=== PATIENT | male | born 1960 | race Caucasian/White ===

== ENCOUNTER 2016-09-11 05:33 | Emergency (ER) | payer OTHER ==
[~2016-09-11] VITALS: Ht 170.2 cm; Wt 127.0 kg
[~2016-09-11 05:33] MED LIST: ENDOCET 325 MG-1 TA1 PO; GLIPIZIDE XL5 MG PO; JANUVIA 100MG100 MG PO; LISINOPRIL20 MG PO; METFORMIN HCL1000 MG PO
[2016-09-11] MEDS ORDERED: TRICOR145 M1 PO (05:56)
[2016-09-11] MEDS ORDERED: IRBESARTAN75 M1 PO (05:56)
--- NOTE | 2016-09-11 06:14 | ED GI/GU/ABDOMINAL COMPLAINT ---
History of Present Illness General Chief Complaint: Abdominal Pain/Flank Pain Stated Complaint: ABD PAIN X A FEW HOURS Source: patient, family, old records Exam Limitations: no limitations Vital Signs & Intake/Output Vital Signs & Intake/Output Vital Signs Date Time Temp Pulse Resp B/P B/P Pulse O2 O2 Flow FiO2 Mean Ox Delivery Rate 09/11 0801 97.0 70 18 132/76 09/11 0552 98.1 66 20 156/84 96 Room Air Allergies Coded Allergies: MDX - Latex (LATEX) (UNKNOWN 05/05/14) Reconcile Medications Fenofibrate Nanocrystallized (Tricor) 145 MG TABLET 1 TAB PO DAILY DIABETES ( Reported) Glipizide (Glipizide XL) 5 MG TAB.ER.24 1 TAB PO DAILY DM (Reported) Irbesartan 75 MG TABLET 1 TAB PO DAILY BLOOD PRESSURE (Reported) METFORMIN HCL (Metformin HCl) 1,000 MG TABLET 1,000 MG PO BID DM (Reported) Sitagliptin Phosphate (Januvia) 100 MG TABLET 1 TAB PO DAILY DM (Reported) Triage Note: PT PRESENTED TO ED WITH 7/10 CONSTANT "DULL" LLQ PAIN WHICH WOKE HIM FROM SLEEP AT APPROXIMATELY 0200 HOURS TODAY (09/11/16). DENIED N/V/D. LNBM AT APPROXIMATELY 0800 HOURS YESTERDAY (09/10/16). PT ADMINISTERED FLEETS ENEMA AT HOME WITH NO RELIEF. BS NORMAL IN ALL QUADRANTS. PAIN DID NOT INCREASE UPON PALPATION. Triage Nurses Notes Reviewed? yes Onset: Just prior to arrival Duration: hour(s):, constant, continues in ED, getting worse Timing: recent history Quality/Severity: aching, moderate, severe Location: left lower quadrant Radiation: periumbilical Activities at Onset: sleep Prior Abdominal Problems: none Past Sexual History: Unobtainable at this time Modifying Factors: Worsens With: palpation. Associated Symptoms: abdominal pain, nausea/vomiting HPI: 4 hours prior to admission patient awoke with moderate aching left lower quadrant pain constant radiating to the umbilicus and groin associated with nausea worse with palpation. Denies fever chills chest pain cough shortness of breath headache dysuria rash bleeding diarrhea. He felt the need to defecate but was unable so did an enema without stool evacuation. (WILDA LARA,SIXTO) Past History Travel History Traveled to [place] past 21 day No Medical History Any Pertinent Medical History? see below for history Endocrine: diabetes Surgical History Surgical History: non-contributory Psychosocial History What is your primary language Filipino Tobacco Use: Quit >30 days ago Family History Hx Contributory? No (SIXTO ASTUDILLO MD) Review of Systems Review of Systems Constitutional: Reports: see HPI, malaise. EENTM: Reports: no symptoms. Respiratory: Reports: no symptoms. Cardiovascular: Reports: no symptoms. GI: Reports: see HPI, abdominal pain, constipation, nausea. Genitourinary: Reports: no symptoms. Musculoskeletal: Reports: no symptoms. Skin: Reports: no symptoms. Neurological/Psychological: Reports: no symptoms. Hematologic/Endocrine: Reports: no symptoms. Immunologic/Allergic: Reports: no symptoms. All Other Systems: Reviewed and Negative (SIXTO ASTUDILLO MD) Physical Exam Physical Exam General Appearance: well developed/nourished, alert, awake, anxious, mild distress, obese Head: atraumatic, normal appearance Eyes: Bilateral: normal appearance, PERRL, EOMI, normal inspection. Ears, Nose, Throat, Mouth: hearing grossly normal, moist mucous membrane Neck: normal inspection, supple, full range of motion, normal alignment Respiratory: normal breath sounds, chest non-tender, no respiratory distress, quiet respiration, lungs clear Cardiovascular: regular rate/rhythm, normal peripheral pulses, norml femoral pulses equa Peripheral Pulses: 4+ carotid (R), 4+ carotid (L) Gastrointestinal: normal bowel sounds, soft, no organomegaly, tenderness (mild left lower quadrant) Male Genitals: normal genitalia Back: normal inspection, normal range of motion Extremities: normal range of motion, no ligament instability Neurologic/Psych: no motor/sensory deficits, awake, alert, oriented x 3, normal gait, normal mood/affect, slip cover sewer II-XII nml as tested Core Measures ACS in differential dx? No Severe Sepsis Present: No Septic Shock Present: No (SIXTO ASTUDILLO MD) Progress Differential Diagnosis: diverticulitis, gastritis, hernia Plan of Care: Orders Procedure Date/time Status URINALYSIS 09/11 601 Active LIPASE 09/11 06 Complete COMPREHENSIVE METABOLIC PANEL 09/11 601 Complete CBC WITHOUT DIFFERENTIAL 09/11 601 Complete Laboratory Tests 09/11/16 0830: Urine Color Pending, Urine Clarity Pending, Urine pH Pending, Ur Specific [place] Pending, Urine Protein Pending, Urine Ketones Pending, Urine Nitrite Pending, Urine Bilirubin Pending, Urine Urobilinogen Pending, Ur Leukocyte Esterase Pending, Ur Microscopic Pending, Urine Hemoglobin Pending, Urine Glucose Pending 09/11/16 0621: Anion Gap 12, Estimated GFR > 60, BUN/Creatinine Ratio 14.4, Glucose 237 H, Calcium 9.1, Total Bilirubin 0.6, AST 31, ALT 64, Alkaline Phosphatase 74, Total Protein 6.6, Albumin 4.1, Globulin 2.5, Albumin/Globulin Ratio 1.6, Lipase 241, CBC w Diff NO MAN DIFF REQ, RBC 5.05, MCV 82.2, MCH 27.4, RDW 15.6 H, MPV 9.2, Gran % 71.9, Lymphocytes % 21.4, Monocytes % 5.6, Eosinophils % 0.7, Basophils % 0.4, Absolute Granulocytes 6.0, Absolute Lymphocytes 1.8, Absolute Monocytes 0.5 , Absolute Eosinophils 0.1, Absolute Basophils 0, PUBS MCHC 33.3 Diagnostic Imaging: Viewed by Me: CT Scan. Discussed w/RAD: CT Scan. Initial ED EKG: none Hand-Off Endorsed To: HANDY LARA,JOAQUINA Bhandari Endorsed Time: 0700 Pending: CT (WILDA LARA,SIXTO) Radiology Impression: PATIENT: BERNARD NAJERA PRESENT AGE: 56 PATIENT ACCOUNT NO: [id number] : 62 LOCATION: [facility] ([facility] ORDERING PHYSICIAN: SIXTO ASTUDILLO MD SERVICE DATE: 09/11/16 EXAM TYPE: CAT - CT ABD & PELVIS W IV CONTRAST EXAMINATION: CT ABDOMEN AND PELVIS WITH CONTRAST CLINICAL INFORMATION: Left lower quadrant pain. Nausea. Possible diverticulitis. COMPARISON: None TECHNIQUE: Multidetector volumetric imaging was performed of the abdomen and pelvis before and after the IV administration of 95 mL of Optiray 320 intravenous contrast. Sagittal and coronal reformatted images were obtained on the technologist's workstation. DLP: 1440 mGy-cm FINDINGS: LUNG BASES: Incidental dependent atelectasis posterior bases. No infiltrate or effusion. LIVER, GALLBLADDER, AND BILIARY TREE: The liver is mildly enlarged measuring 23 cm in length. Liver surface is smooth. There is decreased hepatic parenchymal attenuation consistent with hepatic steatosis. There is no focal hepatic parenchymal lesion or intrahepatic biliary ductal dilatation. The gallbladder is unremarkable with no evidence of radiopaque gallstones, gallbladder wall thickening, or obvious pericholecystic inflammatory changes. PANCREAS: Normal. SPLEEN: Borderline enlarged, measuring 14.2 cm in greatest dimension. ADRENAL GLANDS: Normal. KIDNEYS AND URETERS: There is mild left hydronephrosis with mild left perinephric stranding and hydroureter secondary to a 3 x 4 mm ureteral calculus residing approximately 4 cm from the bladder. There are also punctate nonobstructing calculi within the mid and lower pole left kidney, both under 3 mm in size. The right urinary tract is unremarkable. BLADDER: Unremarkable. GASTROINTESTINAL TRACT: There are diverticula in the distal descending and sigmoid colon without associated inflammatory changes. The appendix is normal. There is no obstruction or ascites or fluid collection. ABDOMINAL WALL: Small bilateral fat-containing inguinal hernias. LYMPH NODES: No lymphadenopathy. VASCULAR: Unremarkable. PELVIC VISCERA: Unremarkable. OSSEOUS STRUCTURES: No acute bony abnormality. IMPRESSION: 1. Mild left hydronephrosis, hydroureter, and left perinephric stranding secondary to a 3 x 4 mm distal ureteral calculus. 2. There are 2 punctate nonobstructing calculi within left kidney, both under 3 mm. 3. Diverticulosis sigmoid. No inflammatory changes. Normal appendix. 4. Mild hepatomegaly secondary to hepatic steatosis. Borderline splenomegaly 14.2 cm. DICTATED BY: NICKI BRYANT MD DATE/TIME DICTATED:811 SUPERVISOR MIXING:IJEOMA DATE/TIME TRANSCRIBED:09/11/16811 CONFIDENTIAL, DO NOT COPY WITHOUT APPROPRIATE AUTHORIZATION. <Electronically signed in Other Vendor System> SIGNED BY: NICKI BRYANT MD 09/11/16 0828 Comments: Patient has been updated on his lab and CAT scan results. Questions are answered. Patient states his pain is down to a 2 out of 10 and he feels comfortable going home. Patient will follow-up with urology. (HANDY LARA,JOAQUINA Bhandari) Departure Departure Condition: Stable Departure Forms: Customer Survey General Discharge Information (WILDA LARA,SIXTO) Departure Disposition: HOME OR SELF CARE Clinical Impression Primary Impression: Abdominal pain Qualifiers: Abdominal location: left lower quadrant Qualified Code: R10.32 - Left lower quadrant pain Secondary Impressions: Kidney stone Referrals: BRAYAN LARA,JUNIE GOODRICH MD,NUZHAT Powell (PCP/Family) Additional Instructions: DRINK PLENTY OF FLUIDS RETURN IF SYMPTOMS WORSEN OR FOR ANY CONCERNS Prescriptions: Current Visit Scripts Oxycodone HCl/Acetaminophen (Percocet 5-325 MG Tablet) 1-2 TAB PO Q6P PRN PAIN #20 TAB Ondansetron (Zofran Odt) 1 TAB SL TID PRN NAUSEA #10 TAB Tamsulosin HCl (Flomax) 1 CAP PO DAILY #14 CAP (HANDY LARA,JOAQUINA Bhandari)
[2016-09-11 06:36] LABS: ABSOLUTE BASOPHIL COUNT 0 /CUMM (0.0-0.2); ABSOLUTE EOSINOPHIL COUNT 0.1 /CUMM (0.0-0.7); ABSOLUTE LYMPH COUNT 1.8 /CUMM (1.2-3.4); ABSOLUTE MONOCYTE COUNT 0.5 /CUMM (0.10-0.60); BASOPHIL % 0.4 % (0.0-2.0); EOSINOPHIL % 0.7 % (0-5); HEMATOCRIT 41.5 % (42-52); MEAN CORPUSCULAR HGB 27.4 PG (27.0-31.0); MEAN CORPUSCULAR HGB CONC 33.3 G/DL (33.0-37.0); MEAN CORPUSCULAR VOLUME 82.2 FL (80.0-94.0); MEAN PLATELET VOLUME 9.2 FL (7.4-10.4); PLATELET COUNT 239 /CUMM (130-400); RBC DISTRIBUTION WIDTH 15.6 % (11.5-14.5); RED BLOOD CELL CT 5.05 /CUMM (4.70-6.10); WHITE BLOOD CELL COUNT 8.3 /CUMM (4.8-10.8)
[2016-09-11 06:37] LABS: GRANULOCYTE % 71.9 % (42.2-75.2)
--- NOTE | 2016-09-11 08:28 | CT SCAN REPORT ---
EXAMINATION: CT ABDOMEN AND PELVIS WITH CONTRAST CLINICAL INFORMATION: Left lower quadrant pain. Nausea. Possible diverticulitis. COMPARISON: None TECHNIQUE: Multidetector volumetric imaging was performed of the abdomen and pelvis before and after the IV administration of 95 mL of Optiray 320 intravenous contrast. Sagittal and coronal reformatted images were obtained on the technologist's workstation. DLP: 1440 mGy-cm FINDINGS: LUNG BASES: Incidental dependent atelectasis posterior bases. No infiltrate or effusion. LIVER, GALLBLADDER, AND BILIARY TREE: The liver is mildly enlarged measuring 23 cm in length. Liver surface is smooth. There is decreased hepatic parenchymal attenuation consistent with hepatic steatosis. There is no focal hepatic parenchymal lesion or intrahepatic biliary ductal dilatation. The gallbladder is unremarkable with no evidence of radiopaque gallstones, gallbladder wall thickening, or obvious pericholecystic inflammatory changes. PANCREAS: Normal. SPLEEN: Borderline enlarged, measuring 14.2 cm in greatest dimension. ADRENAL GLANDS: Normal. KIDNEYS AND URETERS: There is mild left hydronephrosis with mild left perinephric stranding and hydroureter secondary to a 3 x 4 mm ureteral calculus residing approximately 4 cm from the bladder. There are also punctate nonobstructing calculi within the mid and lower pole left kidney, both under 3 mm in size. The right urinary tract is unremarkable. BLADDER: Unremarkable. GASTROINTESTINAL TRACT: There are diverticula in the distal descending and sigmoid colon without associated inflammatory changes. The appendix is normal. There is no obstruction or ascites or fluid collection. ABDOMINAL WALL: Small bilateral fat-containing inguinal hernias. LYMPH NODES: No lymphadenopathy. VASCULAR: Unremarkable. PELVIC VISCERA: Unremarkable. OSSEOUS STRUCTURES: No acute bony abnormality. IMPRESSION: 1. Mild left hydronephrosis, hydroureter, and left perinephric stranding secondary to a 3 x 4 mm distal ureteral calculus. 2. There are 2 punctate nonobstructing calculi within left kidney, both under 3 mm. 3. Diverticulosis sigmoid. No inflammatory changes. Normal appendix. 4. Mild hepatomegaly secondary to hepatic steatosis. Borderline splenomegaly 14.2 cm.
[2016-09-11] MEDS ORDERED: FLOMAX0.4 M1 PO (08:43)
[2016-09-11] MEDS ORDERED: ZOFRAN ODT4 M1 SL (08:43)
[2016-09-11] MEDS ORDERED: PERCOCET 5-3251 EACH PO (08:43)
[2016-09-11 09:11] VITALS: BP 130/80
== END 2016-09-11 09:12 ==
LOC: ERH 05:33
PROVIDERS: Emergency Medicine
DX: N20.0 Calculus of kidney (principal)
CPT/HCPCS: 74177; 81001; 96361; 96374; 96375; J1885; J2405